=== PATIENT | female | born 1980 | race American Indian/Alaskan Native ===

== ENCOUNTER 2019-07-12 14:13 | Emergency (ER) | payer SELFPAY ==
[2019-07-12 15:29] VITALS: BP 147/91
--- NOTE | 2019-07-12 17:52 | Emergency Department Report ---
[facility] Chief Complaint: Eye Problems Stated Complaint: EYE INFECTON IN RT EYE Time Seen by Provider: 07/12/19 17:21 Duration: 9 days Side: Right Severity: mild Symptoms: Yes Eye Redness, Yes Eye Pain, Yes Mucous Drainage, No Eye Itching, No Purulent Drainage, No Blurred Vision, No Preceding URI, No H/O Allergic Rhinitis, No Contact Lens Use, No Trauma, No Fever, No Headache Other History: This is a 39-year-old female who presents the ED complaining of right eye pain and redness for the past 10 days. Patient states symptoms began last week Tuesday. Patient states she has been using [id number] artificial tears with no relief. 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 Patient states she does not feel any foreign body in her eyes. Patient does not wear contacts. Patient denies vision loss, headache or swelling to the eyes. ED Review of Systems ROS: Stated complaint: EYE INFECTON IN RT EYE Other details as noted in HPI Comment: All other systems reviewed and negative ED Past Medical Hx - Past Medical History Hx Psychiatric Treatment: Yes (ANXIETY) - Surgical History Additional Surgical History: KELOID REMOVED RIGHT EAR - Social History Smoking Status: Never Smoker Substance Use Type: None - Medications Home Medications: Home Medications Medication Instructions Recorded Confirmed Last Taken Type hydrOXYzine HCL [Atarax] 25 mg PO Q6HR PRN #30 tablet 01/11/15 Unknown Rx Ketorolac Tromethamine [Ketorolac 1 - 2 drop OP TID #5 ml 07/12/19 Unknown Rx Tromethamine 0.4% opth soln] Tobramycin 0.3% [Tobrex] 1 drop OP Q8HR #1 bottle 07/12/19 Unknown Rx [facility] Exam - Exam General: Vital signs noted. No distress. Alert and acting appropriately. Eye Exam: Right Injection, Neither Chemosis, Neither Abnormal Pupil, Neither EOMI, Neither Eye Foreign Body, Neither Lid Foreign Body, Neither Mucous Discharge, Neither Purulent Discharge, Neither Fluorescein Uptake HEENT: No Nasal Congestion, No Pharyngeal Erythema Remainder of HEENT: Normal Lungs: Yes Clear Lung Sounds, Yes Good Air Exchange, No Wheezes, No Stridor, No Cough, No Nasal Flaring, No Retractions, No Use of Accessory Muscles ED Course Vital Signs 07/12/19 15:27 Temperature 99.5 F Pulse Rate 111 H Respiratory 16 Rate Blood Pressure 147/91 O2 Sat by Pulse 99 Oximetry ED Medical Decision Making - Medical Decision Making 32-year-old female presents with right eye conjunctivitis ED course: [place] lamp test shows no corneal abrasion. discussed this with the patient. 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 I discussed the patient is new or worsening symptoms to return to ED immediately Patient's vital signs are stable he's in no distress. Patient is vision is intact, visual acuity test performed, within normal limits. Discussed the patient to follow up with her primary care physician in 3-5 days. Critical care attestation.: If time is entered above; I have spent that time in minutes in the direct care of this critically ill patient, excluding procedure time. ED Disposition Clinical Impression: Acute atopic conjunctivitis of right eye, Acute bacterial conjunctivitis of right eye Disposition: DC-01 TO HOME OR SELFCARE Is pt being admited?: No Does the pt Need Aspirin: No Condition: Stable Instructions: Conjunctivitis (ED) Additional Instructions: Make sure to follow up with the primary care physician as discussed. Follow-up with the diesel powerplant supervisor as referred. Use all your medications as you've been prescribed. If you have any worsening symptoms or develop new symptoms please return to ED immediately. Prescriptions: Ketorolac Tromethamine [Ketorolac Tromethamine 0.4% opth soln] 1 - 2 drop OP TID #5 ml Tobramycin 0.3% [Tobrex] 1 drop OP Q8HR #1 bottle Referrals: DESTINY DUBOSE MD [Primary Care Provider] - 3-5 Days RODGER HERNANDEZ MD [Staff Physician] - 3-5 Days Forms: Accompanied Note, Work/School Release Form(ED) Time of Disposition: 18:12
== END 2019-07-12 18:58 | disposition home or self-care (01) ==
LOC: ED 14:13
DX: H10.11 Acute atopic conjunctivitis, right eye (principal)
CPT/HCPCS: 99282